=== PATIENT | male | born 1960 | race Native Hawaiian/Other Pacific Islander ===

== ENCOUNTER 2022-01-20 16:07 | Emergency (ER) | payer MEDICARE ==
[~2022-01-20] VITALS: Ht 165.1 cm; Wt 140.9 kg
[2022-01-20] MEDS ORDERED: GABA-1181 PO (17:08)
[2022-01-20] MEDS ORDERED: INSREG SQ (17:08)
[2022-01-20] MEDS ORDERED: HYDR10TA31 PO (17:09)
[2022-01-20] MEDS ORDERED: ATOR10TA PO (17:09)
[2022-01-20] MEDS ORDERED: FURO20 PO (17:09)
[2022-01-20] MEDS ORDERED: NIFE10CA50 PO (17:09)
[2022-01-20] MEDS ORDERED: PIPERACILLIN/TAZO 3.375 GM/D5W 50 ML IV ONE (18:15)
[2022-01-20] MEDS ORDERED: VANCOMYCIN 1GM/WATER(PEG/NADA) 200 ML IV ONE (18:15)
[2022-01-20 18:33] LABS: BASOPHILS % (AUTO) 0.9 % (0.0-2.0); EOSINOPHILS % (AUTO) 5.1 % (1.0-6.0); HEMATOCRIT 32.1 % (41-53); HEMOGLOBIN 10.5 g/dL (13.5-17.5); LYMPHOCYTES % (AUTO) 20.8 % (22.0-44.0); MEAN CORPUSCULAR HEMOGLOBIN 28.8 pg (26.0-34.0); MEAN CORPUSCULAR HGB CONC 32.8 G/dL (31.0-37.0); MEAN CORPUSCULAR VOLUME 88 fL (80-100); MONOCYTES # (AUTO) 0.6 K/uL (0.1-1.0); MONOCYTES % (AUTO) 4.5 % (2.0-9.0); NEUTROPHILS # (AUTO) 9.8 K/uL (1.8-7.7); NEUTROPHILS % (AUTO) 68.7 % (40.0-70.0); PLATELET COUNT (AUTO) 460 K/uL (150-450); RED BLOOD CELL COUNT(AUTO) 3.65 MIL/uL (4.50-5.90)
[2022-01-20 18:39] LABS: CALCIUM, TOTAL 8.8 mg/dL (8.8-10.5); CREATININE 4.13 mg/dL (0.60-1.30); POTASSIUM 4.9 mmol/L (3.5-5.1)
[2022-01-20 18:45] LABS: ALBUMIN 2.5 g/dL (3.4-5.0); BILIRUBIN,TOTAL 0.2 mg/dL (0.1-1.0); TOTAL PROTEIN, SERUM 8.8 g/dL (6.4-8.2)
[2022-01-20 21:37] LABS: COVID AG,FIA SOURCE NASAL SWAB
[2022-01-20 23:29] VITALS: BP 154/77
[2022-01-20] MEDS ORDERED: HYDROCODONE/ACETAMINOPHEN 5-325 MG TABLET PO ONE (23:45)
== END 2022-01-21 00:44 | disposition short-term general hospital (02) ==
LOC: EMS 16:07
DX: T25.321A Burn of third degree of right foot, initial encounter (principal); N28.9 Disorder of kidney and ureter, unspecified; E11.9 Type 2 diabetes mellitus without complications; E78.00 Pure hypercholesterolemia, unspecified; I10 Essential (primary) hypertension; Z20.822 Contact with and (suspected) exposure to COVID-19
CPT/HCPCS: 99285; 96365; 87426; 80053; 85025; 87040; 36415; 96368; J2543; Q9967